=== PATIENT | male | born 1970 | race Caucasian/White ===

== ENCOUNTER 2019-09-16 16:02 | Emergency (ER) | payer BC, OTHER ==
[2019-09-16 16:26] VITALS: BMI 33.0
--- NOTE | 2019-09-16 16:26 | PDOC ---
Rapid Medical Evaluation Time Seen by Provider: 09/16/19 16:21 Medical Evaluation: Allergies Allergy/AdvReac Type Severity Reaction Status Date / Time No Known Allergies Allergy Verified 09/16/19 16:20 09/16/19 16:24 CC: unknown exposure to an ac unit + legionella in the last 90 days, states fatigue, mild sob Exam: vss ( bp slightly elevated), lcta Plan: cbc, cxr, legionella urine Discharge Disposition - Diagnosis Suspected Legionella pneumonia - Referrals - Patient Instructions - Post Discharge Activity
--- NOTE | 2019-09-16 16:53 | PDOC ---
History of Present Illness - General Chief Complaint: Cold Symptoms Stated Complaint: EVALUATION Time Seen by Provider: 09/16/19 16:21 History Source: Patient Exam Limitations: No Limitations - History of Present Illness Initial Comments: 09/16/19 16:52 48-year-old male no significant past medical history presenting the ED with body aches headache dry cough. 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 Patient has had symptoms prior to this for about 1 week. Patient denies abdominal symptoms including nausea vomiting diarrhea. Patient denies any COVID exposures as well as recent travel. Pt otherwise denies: fevers, chills, syncope, lightheadedness, dizziness, headaches, neck pain, chest pain, shortness of breath, palpitations, back pain, abdominal pain, nausea, vomiting, diarrhea, constipation. Past History - Medical History Allergies/Adverse Reactions: Allergies Allergy/AdvReac Type Severity Reaction Status Date / Time No Known Allergies Allergy Verified 09/16/19 16:20 Home Medications: Ambulatory Orders Azithromycin 250 mg PO DAILY #4 tablet 09/16/19 - Psycho-Social/Smoking History Smoking History: Never smoked Number of Cigarettes Smoked Daily: 6 Information on smoking cessation initiated: No 'Breaking Loose' booklet given: 09/16/14 - Substance Abuse Hx (Audit-C & DAST Scrn) How often the patient has a drink containing alcohol: Never Score: In Men: 4 or > Positive; In Women: 3 or > Positive: 0 Screen Result (Pos requires Nsg. Audit-10AR): Negative In the last yr the pt used illegal drug/Rx for NonMed reason: No Score: Yes response is considered Positive: 0 Screen Result (Positive result requires Nsg. DAST-10): Negative *Physical Exam - Vital Signs Last Vital Signs Temp Pulse Resp BP Pulse Ox 97.8 F 110 H 16 161/101 H 99 09/16/19 16:20 09/16/19 16:20 09/16/19 16:20 09/16/19 16:20 09/16/19 16:20 - Physical Exam 09/16/19 16:53 Gen: AAOx 3, no acute distress, comfortable, no signs of respiratory distress HENT: atraumatic, normocephalic with no laceration or contusion. Nasal mucosa without erythema. Oropharynx without erythema or exudates. Mucous membranes moist. EYES: PERRL, EOM intact, conjunctiva pink NECK: supple; trachea midline; no JVD, no lymphadenopathy, or thyromegaly CV: RRR no murmurs, gallops, or rubs. CHEST: CTA b/l no wheezing, rales or rhonchi ABD: +BS/ND. no TTP; soft, no rebound, no guarding EXTREMITY: no cyanosis or erythema. 2+ dorsalis pedis, posterior tibial, and radial pulse. No pedal edema; no calf swelling or tenderness SKIN: no rash, warm and dry, no diaphoresis HEME: no purpura or ecchymosis NEURO: normal speech, CN II-XII intact, sensation intact, normal gait, no cerebellar deficits MS: 5/5 strength in all extremities, FROM intact in all extremities. ED Treatment Course - LABORATORY CBC & Chemistry Diagram: 09/16/19 16:34 Medical Decision Making - Medical Decision Making 09/16/19 16:53 48-year-old male with Legionella exposure Vital signs significant for asymptomatic hypertension as well as tachycardia to 110 Will obtain Legionella urine antigen COVID as well as CBC and chest x-ray will reassess based on result CBC significant for WBC 13.7 Legionella antigen will not be resulted until possibly tomorrow Chest XR WNL Pt given 500mg Azithro and will send Zpak to pharmacy Pt no longer tachycardic to 92 BMP Pt to follow up with PCP and will be notified about legionella and covid results. Pt appears well and is anxious to go home. Pt is safe and stable for discharge Supportive care instructions explained and given to pt. Reasons to return emergently to ER explained and given. Importance of follow up with PMD and other specialists as indicated stressed to pt. Pt verbalized understanding of instructions. Pt to follow up with PMD in 2 days. 09/16/19 18:48 Discharge - Discharge Information Problems reviewed: Yes Clinical Impression/Diagnosis: Suspected Legionella pneumonia Condition: Stable Disposition: HOME - Additional Discharge Information Prescriptions: Azithromycin 250 mg PO DAILY #4 tablet - Follow up/Referral - Patient Discharge Instructions Patient Printed Discharge Instructions: DI for Viral Upper Respiratory Infection -- Adult Additional Instructions: YOU MUST FOLLOW UP WITH YOUR REGULAR DOCTOR DO NOT RETURN TO WALK UNTIL YOU ARE CALLED WITH YOUR RESULTS - Post Discharge Activity Work/Back to School Note: Back to Work
[2019-09-16 17:17] LABS: BASO % 0.5 % (0-2.0); EOS % 2.7 % (0-4.5); HEMATOCRIT 47.8 % (35.4-49); HEMOGLOBIN 16.2 GM/dL (11.7-16.9); LYMPH % 31.4 % (8-40); MCH 31.3 pg (25.7-33.7); MCHC 33.9 g/dl (32.0-35.9); MEAN CELL VOLUME 92.3 fl (80-96); MEAN PLT VOLUME 8.4 fl (7.5-11.1); MONO % 5.7 % (3.8-10.2); NEUT % 59.7 % (42.8-82.8); PLATELET COUNT 225 K/MM3 (134-434); RBC 5.18 M/mm3 (4.00-5.60); RDW 12.9 % (11.9-15.9); WHITE BLOOD COUNT 13.7 K/mm3 (4.0-10.0)
[2019-09-16] MEDS ORDERED: AZITHROMYCIN 500 MG TABLET PO ONE (17:26)
[2019-09-16] MEDS ORDERED: AZITHROMYCIN 250 MG TABLET ONE (18:37)
[2019-09-16 19:11] VITALS: BP 148/95; PULSE 81; TEMP 98.6
== END 2019-09-16 19:24 | disposition home or self-care (01) ==
LOC: JER 16:02
DX: J06.9 Acute upper respiratory infection, unspecified (principal)
CPT/HCPCS: 36415; 71046-TC-FY; 85025; 87899; 99284-25; U0003

== ENCOUNTER 2020-05-05 16:38 | Emergency (ER) | payer BC ==
[2020-05-05 16:53] VITALS: BP 163/98; PULSE 93; TEMP 98.1; BMI 33.0
[2020-05-05] MEDS ORDERED: LIDOCAINE 5% TOPICAL PATCH TP ONE (17:34)
[2020-05-05] MEDS ORDERED: KETOROLAC TROMETHAMINE 30 MG/1 ML VIAL IM ONE (17:34)
[2020-05-05] MEDS ORDERED: LIDOCAINE 5% TOPICAL PATCH ONE (17:37)
[2020-05-05] MEDS ORDERED: KETOROLAC TROMETHAMINE 30 MG/1 ML VIAL ONE (17:37)
[2020-05-05] MEDS ORDERED: LIDOCAINE PATCH REMOVAL MC ONE (22:00)
== END 2020-05-05 17:56 | disposition home or self-care (01) ==
LOC: JERFT 16:38
PROC: 3E0233Z Introduction of Anti-inflammatory into Muscle, Percutaneous Approach (ICD-10-PCS; principal; 2020-05-05)
DX: M25.561 Pain in right knee (principal)
CPT/HCPCS: 99284-25

== ENCOUNTER 2022-10-25 17:11 | Emergency (ER) | payer OTHER, BC ==
[2022-10-25 17:19] VITALS: BP 140/85; PULSE 75; RESP 18; TEMP 98.2; BMI 35.2
[2022-10-25] MEDS ORDERED: LIDOCAINE 5% TOPICAL PATCH TP ONE (18:15)
[2022-10-25] MEDS ORDERED: METHOCARBAMOL 500 MG TABLET PO ONE (18:16)
[2022-10-25] MEDS ORDERED: METHOCARBAMOL 500 MG TABLET ONE (18:25)
[2022-10-25] MEDS ORDERED: LIDOCAINE 5% TOPICAL PATCH ONE (18:25)
[2022-10-25] MEDS ORDERED: LIDOCAINE PATCH REMOVAL MC ONE (22:00)
== END 2022-10-25 20:05 | disposition home or self-care (01) ==
LOC: JERFT 17:11
DX: S49.91XA Unspecified injury of right shoulder and upper arm, initial encounter (principal); M25.511 Pain in right shoulder; X50.0XXA Overexertion from strenuous movement or load, initial encounter; Y99.0 Civilian activity done for income or pay
CPT/HCPCS: 73030-TC-RT-FY; 99283-25